=== PATIENT | female | born 1985 | race Caucasian/White ===

== ENCOUNTER 2019-03-12 19:56 | Emergency (ER) | payer SELFPAY ==
[~2019-03-12 19:56] MED LIST: Atropine Sulfate 1 mg/10 ml Syringe ONE; EPINEPHrine 1 MG/10 ML Abboject SYRINGE ONE
[2019-03-12] MEDS ORDERED: Rocuronium Bromide 10 MG/ML (10ML VIAL) ONE (20:03)
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
== END 2019-03-12 20:18 | disposition expired ==
LOC: EDBD 19:56 → ERS 19:56
DX: I46.8 Cardiac arrest due to other underlying condition (principal); S06.9X1A Unspecified intracranial injury with loss of consciousness of 30 minutes or less, initial encounter; S72.92XA Unspecified fracture of left femur, initial encounter for closed fracture; S82.402A Unspecified fracture of shaft of left fibula, initial encounter for closed fracture; S82.202A Unspecified fracture of shaft of left tibia, initial encounter for closed fracture; S27.2XXA Traumatic hemopneumothorax, initial encounter; V03.99XA Pedestrian with other conveyance injured in collision with car, pick-up truck or van, unspecified whether traffic or nontraffic accident, initial encounter
CPT/HCPCS: 31500; 32551; 36430; 36556; 86850; 86900; 86901; 92950; 94760; 96374; 96376; G0390; J0171; J0461; P9016